=== PATIENT | female | born 1995 | race Hispanic/Latino ===

== ENCOUNTER 2018-04-17 15:31 | Day surgery (SDC) | payer OTHER ==
[2018-04-17 16:17] VITALS: BMI 34.7
--- NOTE | 2018-04-17 17:03 | PDOC.LDHP ---
Labor and Delivery H&P Chief complaint: decreased movement HPI: 23 y/o at 28w3d, patient of Dr. Judge, presents with decreased movement today. Denies VB, LOF, ctx, or other concerns. ROS neg for HEENT, cv, pulm, gi, gu, neuro, psych, skin, musculoskeletal or constitutional symptoms other than mentioned above. OB History Details: 1 prior LTCS for distress Current complications: none Abnormal US findings: No Past Medical History: GERD Current medications: pre- vitamins, other (omeprazole) Previous surgical history: low tranverse CS (x1) Allergies/Adverse Reactions: Allergies Allergy/AdvReac Type Severity Reaction Status Date / Time No Known Allergies Allergy Unverified 04/17/18 16:10 Social history: none - Physical Exam Vital signs reviewed and normal: yes General: NAD, resting Lungs: nonlabored breathing Abdomen: gravid Extremeties: no edema FHT: category 1 (145, mod variability, + accels, no decels) [place] contractions every: none - Assessment 23y/o at 28w3d with reassuring status - NST AGA reactive - Plan -: D/c home with precautions. Advised to keep all appointments.
== END 2018-04-17 16:28 | disposition home health service (06) ==
LOC: L&D/OP 15:31
PROVIDERS: ATTEND Obstetrics & Gynecology
DX: O36.8130 Decreased fetal movements, third trimester, not applicable or unspecified (principal); Z3A.28 28 weeks gestation of pregnancy
CPT/HCPCS: 99282

== ENCOUNTER 2018-07-01 10:15 | Inpatient (IN) | payer OTHER ==
--- NOTE | 2018-06-30 19:43 | PDOC.LDHP ---
Labor and Delivery H&P Chief complaint: scheduled section HPI: 23 to @ 39s1d by LMP c/w 18 week sono who presents for RCD. Pt h/o LTCS x1 and declines TOLAC. Remainder of antepartum course uncomplicated. Current gestational age (weeks): 39 Due date: 07/07/18 Dating criteria: last menstrual period Grav: 3 Para: 1 OB History Details: 1 LTCS 2015 1 SAB Current complications: none Abnormal US findings: No Past Medical History: Denies Current medications: pre- vitamins Previous surgical history: low tranverse CS Allergies/Adverse Reactions: Allergies Allergy/AdvReac Type Severity Reaction Status Date / Time No Known Allergies Allergy Verified 07/01/18 11:37 Social history: none - Physical Exam Vital signs reviewed and normal: yes General: NAD Heart: RRR Lungs: nonlabored breathing Abdomen: gravid Extremeties: no edema FHT: category 1 (120s, mod jaqueline, +accels, no decels) [place] contractions every: none - OB Labs Blood type: A RH: positive Antibody Screen: negative HIV: negative RPR: negative HEPSAg: negative 1 hour GCT: negative GBS: negative Urine drug screen: negative Rubella: immune Additional Labs: Carrier screening and AFP tetra wnl - Assessment 39w1d IUP H/O LTCS x1, declines TOLAC Admit for RCD - Plan Plan: to OR for section, informed consent obtained, anesthesia consult for pain management
[2018-07-01] MEDS ORDERED: Ondansetron PF 4 MG/2 ML Vial IVP PRN ×3 (10:38→17:15)
[2018-07-01] MEDS ORDERED: Butorphanol Tartrate 1 MG/ML VIAL SLOW IVP PRN (10:38)
[2018-07-01] MEDS ORDERED: CEFAZOLIN 2 GM in Premix Bag 1 BAG IVPB SCH (10:38)
[2018-07-01] MEDS ORDERED: Bicitra 30 ML UDCUP PO SCH (10:38)
[2018-07-01] MEDS ORDERED: Acetaminophen 500 MG TAB PO PRN (10:38)
[2018-07-01] MEDS ORDERED: Promethazine HCl 25 MG/ML VIAL IM PRN ×2 (10:38→14:35)
[2018-07-01] MEDS: Lactated Ringer's 1,000 ML IV SCH ×3 (10:47→20:15)
[2018-07-01 10:57] LABS: Hemoglobin 12.6 g/dL (12.0-16.0); Mean Corpuscular HGB CONC 33.7 g/dL (32.0-36.0); Mean Corpuscular Hemoglobin 27.7 pg (27.0-31.0); Mean Corpuscular Volume 82.1 fL (78.0-98.0); Mean Platelet Volume 10.7 fL (7.4-10.4); Platelet Count 176 thou/uL (130-400); RBC Distribution Width 13.1 % (11.5-14.5); Red Blood Cell (RBC) Count 4.55 mill/uL (4.20-5.40); White Blood Cell (WBC) Count 9.9 thou/uL (4.8-10.8)
[2018-07-01 11:34] VITALS: BMI 36.5
[2018-07-01 11:36] LABS: Syphilis Antibody Nonreactive (Nonreactive); Syphilis Antibody Index 0.04 S/CO (<1.00 Non-Reactive)
[2018-07-01 11:37] LABS: HBSAg Index 0.39 S/CO (0-0.99); HIV (1/2) Antibody/Antigen Non-Reactive (NonReactive); HIV 1/2 INDEX 0.21 S/CO (<1.00); Hep B Surf Ag Non-Reactive S/CO (NonReactive)
[2018-07-01] MEDS ORDERED: Oxytocin 10 UNITS/ML VIAL ONE ×3 (11:54→14:09)
[2018-07-01] MEDS ORDERED: Fentanyl 100 MCG/2 ML VIAL ONE (11:56)
[2018-07-01] MEDS ORDERED: MORPHINE 5 MG/10 ML PF VIAL ONE (11:57)
[2018-07-01] MEDS ORDERED: Morphine 4 MG/ML VIAL ONE (11:57)
[2018-07-01] MEDS ORDERED: Metoclopramide HCl 10 MG/2 ML VIAL ONE (13:20)
[2018-07-01] MEDS ORDERED: Ondansetron PF 4 MG/2 ML Vial ONE (13:20)
[2018-07-01] MEDS ORDERED: PHENYLEPHRINE-NS 100 MCG/ML 10 ML SYRINGE ONE (13:20)
[2018-07-01] MEDS ORDERED: Eucerin (Mineral Oil/Petrolatum,White) 30 gm Jar TOP PRN (14:35)
[2018-07-01] MEDS ORDERED: L&D-Morphine 4 MG/ML VIAL SLOW IVP PRN (14:35)
[2018-07-01] MEDS ORDERED: Naloxone HCl 0.4 mg/ml Vial IV PRN (14:35)
[2018-07-01] MEDS ORDERED: HYDROmorphone 2 MG/ML VIAL SLOW IVP PRN (14:35)
[2018-07-01] MEDS ORDERED: diphenhydrAMINE 50 MG/ML VIAL IVP PRN (14:35)
[2018-07-01] MEDS ORDERED: Promethazine HCl 25 MG SUPP PR PRN (14:35)
[2018-07-01] MEDS ORDERED: Meperidine HCl/PF 25 MG/ML VIAL SLOW IVP PRN (14:35)
[2018-07-01] MEDS ORDERED: Ondansetron HCl/PF 4 MG/2 ML Vial IVP PRN (14:35)
[2018-07-01] MEDS ORDERED: Naloxone HCl 0.4 mg/ml Vial IVP PRN ×2 (14:35)
--- NOTE | 2018-07-01 14:39 | PDOC.OPDEL ---
OB Operative/Delivery Note Delivery Dr/Surgeon: Katy Judge DO Pre-Delivery Diagnosis: scheduled section Procedure/Post Delivery Dx: repeat low transverse CS Weeks gestation: 39 Anesthesia: spinal - Findings A Sex: female - 1 min: 8 - 5 min: 9 - Additional Findings/Plan Placenta delivered: spontaneous findings: low transverse hysterotomy without extension, normal uterus, normal tubes, normal ovaries Estimated blood loss: QBL 525 cc Compilations/Other Findings: Infant in cephalic presentation. Clear amniotic fluid Normal appearing placenta Post delivery plan: routine recovery
[2018-07-01] MEDS ORDERED: Communication Order-Pharmacy FS SCH (14:45)
[2018-07-01] MEDS ORDERED: Ketorolac Tromethamine 30 MG/ML VIAL IVP SCH (14:45)
[2018-07-01] MEDS ORDERED: Ketorolac Tromethamine 30 MG/ML VIAL ONE (16:34)
[2018-07-01] MEDS: Ketorolac Tromethamine 30 MG/ML VIAL IVP PRN ×2 (16:39→23:12)
[2018-07-01] MEDS ORDERED: HYDROcodone/Acetaminophen 5/325 mg Tablet PO PRN (17:15)
[2018-07-01] MEDS ORDERED: Methylergonovine 0.2 MG/ML VIAL IM PRN (17:15)
[2018-07-01] MEDS ORDERED: Bisacodyl 10 MG SUPP PR PRN (17:15)
[2018-07-01] MEDS ORDERED: diphenhydrAMINE 25 MG CAP PO PRN (17:15)
[2018-07-01] MEDS ORDERED: Simethicone Chewable 80 MG TAB PO PRN (17:15)
[2018-07-01] MEDS ORDERED: Acetaminophen 325 MG TAB PO PRN (17:15)
[2018-07-01] MEDS ORDERED: Misoprostol 200 MCG TAB PR PRN (17:15)
[2018-07-01] MEDS: Docusate Calcium (SURFAK) 240 MG CAP PO SCH (22:30)
[2018-07-02] MEDS ORDERED: HYDROcodone/Acetaminophen 5/325 mg Tablet PO PRN (02:45)
[2018-07-02] MEDS: Lactated Ringer's 1,000 ML IV SCH ×3 (03:42→20:43)
[2018-07-02] MEDS: Ketorolac Tromethamine 30 MG/ML VIAL IVP PRN (05:01)
--- NOTE | 2018-07-02 07:55 | PDOC.PP ---
Post Progress Note Post Day #: 1 Subjective: Minimal -moderate pain. Minimal lochia. Leonardo removed. Bottle feeding. PO intake tolerated: yes Flatus: yes Ambulation: yes Vital Signs (12 hours) Temp Pulse Resp BP Pulse Ox 07/02/18 07:44 97.7 F 61 20 102/58 L 96 07/02/18 05:30 98.1 F 65 16 108/50 L 07/01/18 23:10 98.8 F 69 16 120/56 L Weight Weight 233 lb - Physical Examination General: NAD Cardiovascular: RRR Respiratory: non-labored breathing Abdominal: no distention, appropriately TTP Fundus firm & at: below umbilicus Extremities: negative homans (B) Skin: CS incision dry & intact, no rash Neurological: no gross focal deficits Psychiatric: A&Ox3, normal affect Result Diagrams: 07/01/18 10:47 Additional Labs: Post Labs Blood Type A POSITIVE 07/01/18 11:05 Hep Bs Antigen Non-Reactive S/CO (NonReactive) 07/01/18 10:47 (1) delivery delivered Code(s): O82 - ENCOUNTER FOR DELIVERY WITHOUT INDICATION Status: Acute - Assessment/Plan PPD1 VSSAF CBC pending. Continue PP care. Plan for d/c tomorrow.
--- NOTE | 2018-07-02 07:56 | OP ---
DATE OF PROCEDURE: 07/01/2018 PREOPERATIVE DIAGNOSES: 1. A 39-week and one-day intrauterine . 2. History of low-transverse delivery x1, declines trial of labor. 3. Obesity. POSTOPERATIVE DIAGNOSES: 1. A 39-week and one-day intrauterine . 2. History of low-transverse delivery x1, declines trial of labor. 3. Obesity. PROCEDURE PERFORMED: Repeat low-transverse delivery via Pfannenstiel skin incision. SURGEON: Katy Nagel DO BASTING PULLER: Kane Gomez MD COMPLICATIONS: None. ANESTHESIA: Spinal. QBL: 525 cc. FINDINGS: Normal-appearing uterus, fallopian tubes, and ovaries bilaterally. Clear amniotic fluid. A viable female infant in cephalic presentation with Apgars of 8 and 9. Normal-appearing placenta. INDICATIONS FOR THE PROCEDURE: Ms. Kristin Zapata is a 23-year-old, G3, P1, at 39 weeks and one day, who presents for repeat low-transverse delivery due to a history of one prior low transverse section and declines trial of labor. Otherwise, her antepartum course has been benign. DESCRIPTION OF PROCEDURE: The patient was brought to the operating room. She was placed under spinal anesthesia. The patient was placed in supine position with a leftward tilt. The Leonardo catheter was placed. She was given Ancef for surgical prophylaxis. The patient was prepped and draped in a sterile fashion. An official time-out was performed. A Pfannenstiel skin incision was made through the previous scar. This was carried down to the underlying fascia layer. The fascia was incised in the midline and extended bilaterally using Serna scissors. The superior aspect of the fascial incision was grasped using Kendell clamps, extended upward, and dissected free from the underlying rectus abdominal muscles and the same was done to the inferior aspect of the fascial incision. The peritoneum was then entered in bluntly and the peritoneal incision was then extended using blunt dissection. The Kilo O retractor was then placed into the abdomen. A bladder flap was created using Metzenbaum scissors. A low-transverse hysterotomy was made using the scalpel. This was extended using blunt dissection. Amniotic membranes were ruptured, noting clear amniotic fluid. The infant was delivered in cephalic presentation without difficulty. Infant's cord was clamped and cut. The infant was handed to the awaiting neonatology team. Cord sample and cord bloods were obtained. The placenta was delivered spontaneously intact. The uterus was cleared of all clot and debris. The hysterotomy was closed in a running locking fashion using 0 Monocryl creating hemostasis. The pelvis was irrigated and cleared of all clot and debris. The bilateral fallopian tubes and ovaries were evaluated and normal in appearance. The Kilo O retractor was removed from the abdomen. The peritoneum was closed in a running fashion using 2-0 chromic. The rectus abdominis muscles were evaluated and hemostatic. The fascia was closed in a running fashion using 0 PDS. The subcutaneous layer was copiously irrigated and hemostatic with the use of Bovie. Subcutaneous layer was then closed using 3-0 Vicryl and the skin was closed using 4-0 Monocryl and Dermabond. The patient tolerated the procedure well. There were no complications. All counts were correct x3. Mother and were transferred to routine recovery. Job ID: [id number] MTDD
[2018-07-02 08:36] LABS: #Eosinphils 0.1 thou/uL (0.0-0.7); #Lymphocytes 1.7 thou/uL (1.20-3.40); #Monocytes 0.6 thou/uL (0.11-0.59); #Neutrophils 6.3 thou/uL (1.40-6.50); %Basophils 0.3 % (0.0-1.0); %Eosinophils 1.5 % (0.0-10.0); %Lymphocytes 19.4 % (21.0-51.0); %Monocytes 6.4 % (0.0-10.0); %Neutrophils 72.4 % (42.0-75.0); Hemoglobin 10.5 g/dL (12.0-16.0); Mean Corpuscular HGB CONC 33.6 g/dL (32.0-36.0); Mean Corpuscular Hemoglobin 27.7 pg (27.0-31.0); Mean Corpuscular Volume 82.5 fL (78.0-98.0); Mean Platelet Volume 10.8 fL (7.4-10.4); Platelet Count 151 thou/uL (130-400); White Blood Cell (WBC) Count 8.7 thou/uL (4.8-10.8)
[2018-07-02] MEDS: Prenatal Vitamin 1 TAB PO SCH (09:54)
[2018-07-02] MEDS: Docusate Calcium (SURFAK) 240 MG CAP PO SCH ×2 (09:55→20:49)
[2018-07-02] MEDS: HYDROcodone/Acetaminophen 5/325 mg Tablet PO PRN ×2 (09:55→15:28)
[2018-07-02] MEDS: Ibuprofen 800 MG TAB PO SCH ×2 (15:29→22:55)
[2018-07-03] MEDS: Lactated Ringer's 1,000 ML IV SCH ×2 (05:28→10:10)
[2018-07-03] MEDS: Ibuprofen 800 MG TAB PO SCH (06:06)
--- NOTE | 2018-07-03 08:14 | PDOC.PP ---
Post Progress Note Post Day #: 2 Subjective: No concerns. Pain and lochia minimal. Bottle feeding. PO intake tolerated: yes Flatus: yes Ambulation: yes Vital Signs (12 hours) Temp Pulse Resp BP Pulse Ox 07/03/18 04:50 98.3 F 69 18 112/64 07/03/18 01:00 98.3 F 68 16 113/67 97 Weight Weight 233 lb - Physical Examination General: NAD Cardiovascular: RRR Respiratory: non-labored breathing Abdominal: no distention, appropriately TTP Fundus firm & at: below umbilicus Extremities: negative homans (B) Skin: CS incision dry & intact, no rash Neurological: no gross focal deficits Psychiatric: A&Ox3, normal affect Result Diagrams: 07/02/18 08:20 Additional Labs: Post Labs Blood Type A POSITIVE 07/01/18 11:05 Hep Bs Antigen Non-Reactive S/CO (NonReactive) 07/01/18 10:47 (1) delivery delivered Code(s): O82 - ENCOUNTER FOR DELIVERY WITHOUT INDICATION Status: Acute - Assessment/Plan PPD2 VSSAF Plan for d/c home today with . Rx sent.
[2018-07-03] MEDS: Prenatal Vitamin 1 TAB PO SCH (09:11)
[2018-07-03] MEDS: Docusate Calcium (SURFAK) 240 MG CAP PO SCH (09:11)
[2018-07-03 12:02] VITALS: BP 118/59; TEMP 98.2
== END 2018-07-03 13:00 | disposition home or self-care (01) | DRG 788 ==
LOC: L&D 10:15 → 3SW 17:13
PROVIDERS: ADMIT Obstetrics & Gynecology; ATTEND Obstetrics & Gynecology
PROC: 10D00Z1 Extraction of Products of Conception, Low, Open Approach (ICD-10-PCS; principal; 2018-07-01)
DX: O34.211 Maternal care for low transverse scar from previous cesarean delivery (principal); O99.214 Obesity complicating childbirth; E66.9 Obesity, unspecified; Z3A.39 39 weeks gestation of pregnancy; Z37.0 Single live birth
CPT/HCPCS: 36415; 51702; 85025; 85027; 86780; 86850; 86900; 86901; 87340; 87389; J0690; J1885; J2270; J2405; J2590; J2765; J3010